=== PATIENT | male | born 1955 | race Caucasian/White ===

== ENCOUNTER 2020-05-17 14:20 | Emergency (ER) | payer OTHER ==
[2020-05-17] MEDS ORDERED: Sodium Chloride 0.9% 10 ML Syringe FLUSH PRN (14:26)
--- NOTE | 2020-05-17 15:03 | EDM.PDOC ---
ED HPI GENERAL MEDICAL PROBLEM - General Chief Complaint: General Stated Complaint: COVID+/HYPERTENSION Time Seen by Provider: 05/17/20 14:47 Source of Information: Reports: Patient History Limitations: Reports: No Limitations - History of Present Illness INITIAL COMMENTS - FREE TEXT/NARRATIVE: Patient presents with elevated blood pressure at home. When he saw it (170's/90s) he felt a little tightness in his chest as a result. He denies chest pain or dyspnea. He says he did get "winded" 2 days ago walking 1/2 mile of rough terrain to a [place]. He is taking his regular meds and says his Losartan was increased 2 days ago. - Related Data Allergies Allergy/AdvReac Type Severity Reaction Status Date / Time No Known Drug Allergies Allergy Other Verified 05/17/20 14:24 Home Meds: Home Meds Losartan [Cozaar] 100 mg PO DAILY 05/17/20 [History] atorvaSTATin [Lipitor] 40 mg PO BEDTIME 05/17/20 [History] Social & Family History - Tobacco Use Tobacco Use Status *Q: Former Tobacco User Used Tobacco, but Quit: Yes Month/Year Tobacco Last Used: 2016 ED ROS GENERAL - Review of Systems Review Of Systems: See Below Constitutional: Denies: Fever, Chills, Malaise, Weakness HEENT: Denies: Ear Pain, Throat Pain, Vision Change Respiratory: Denies: Shortness of Breath, Cough Cardiovascular: Reports: Blood Pressure Problem. Denies: Chest Pain, Lightheadedness, Syncope GI/Abdominal: Denies: Abdominal Pain, Diarrhea, Vomiting : Denies: Dysuria, Flank Pain Musculoskeletal: Denies: Neck Pain, Shoulder Pain, Arm Pain, Back Pain, Hand Pa in Skin: Denies: Cyanosis, Jaundice, Mottled, Pallor, Diaphoresis Neurological: Denies: Confusion, Dizziness, Seizure, Syncope, Trouble Speaking, Difficulty Walking Psychiatric: Denies: Agitation, Anxiety ED EXAM, GENERAL - Physical Exam Exam: See Below Exam Limited By: No Limitations General Appearance: Alert, WD/WN, No Apparent Distress Eye Exam: Bilateral Eye: EOMI, Normal Inspection, PERRL Ears: Normal External Exam, Hearing Grossly Normal Nose: Normal Inspection, No Blood Throat/Mouth: Normal Inspection, Normal Lips, Normal Voice, No Airway Compromise Head: Atraumatic, Normocephalic Neck: Normal Inspection, Full Range of Motion Respiratory/Chest: No Respiratory Distress, Lungs Clear, Normal Breath Sounds, No Accessory Muscle Use Cardiovascular: Regular Rate, Rhythm, No Murmur GI/Abdominal: Normal Bowel Sounds, Soft, Non-Tender, No Organomegaly, No Distention Back Exam: Normal Inspection, Full Range of Motion. No: CVA Tenderness (L), CVA Tenderness (R) Extremities: Normal Inspection, Normal Range of Motion Neurological: Alert, Oriented, Normal Cognition, No Motor/Sensory Deficits Psychiatric: Normal Affect, Normal Mood Skin Exam: Warm, Dry, Intact, Normal Color, No Rash Course - Vital Signs Last Recorded V/S: Last Vital Signs Temp 97 F 05/17/20 14:28 Pulse 64 05/17/20 16:30 Resp 19 05/17/20 16:30 BP 166/87 H 05/17/20 16:30 Pulse Ox 97 05/17/20 16:30 - Orders/Labs/Meds Orders: Active Orders 24 hr Category Date Time Status EKG Documentation Completion [RC] ASDIRECTED Care 05/17/20 14:26 Active Peripheral IV Care [RC] . DIRECTED Care 05/17/20 14:26 Active Sodium Chloride 0.9% [Saline Flush] Med 05/17/20 14:26 Active 10 ml FLUSH Q8HR PRN Isolation [COMM] Routine Oth 05/17/20 14:37 Ordered Peripheral IV Insertion Adult [OM.PC] Routine Oth 05/17/20 14:26 Ordered EKG 12 Lead [EK] Urgent Ther 05/17/20 14:26 Ordered Medication Orders Sodium Chloride (Saline Flush) 10 ml FLUSH Q8HR PRN PRN Reason: keep vein open Last Admin: 05/17/20 16:09 Dose: 10 ml Documented by: MARY Labs: Laboratory Tests 05/17/20 05/17/20 Range/Units 14:45 14:45 WBC 7.91 (5.00-10.00) 10^3/uL RBC 3.60 L (4.50-6.00) 10^6/uL Hgb 11.1 L (13.0-17.0) g/dL Hct 34.0 L (40.0-52.0) % MCV 94.4 H (82.0-92.0) fL MCH 30.8 (27.0-31.0) pg MCHC 32.6 (32.0-36.0) g/dL RDW 13.0 (11.5-14.5) % Plt Count 207 (150-400) 10^3/uL MPV 10.4 (7.4-10.4) fL Immature Gran % (Auto) 0.3 (0.0-5.0) % Neut % (Auto) 49.8 L (50.0-70.0) % Lymph % (Auto) 33.9 (20.0-40.0) % [place] % (Auto) 13.3 H (2.0-8.0) % Eos % (Auto) 2.3 (1.0-3.0) % Baso % (Auto) 0.4 (0.0-1.0) % Neut # (Auto) 3.95 (2.50-7.00) 10^3/uL Lymph # (Auto) 2.68 (1.00-4.00) 10^3/uL [place] # (Auto) 1.05 H (0.10-0.80) 10^3/uL Eos # (Auto) 0.18 (0.10-0.30) 10^3/uL Baso # (Auto) 0.03 (0.00-0.10) 10^3/uL Immature Gran # (Auto) 0.02 (0.00-0.50) 10^3/uL Sodium 138 (136-145) mmol/L Potassium 3.5 (3.3-5.3) mmol/L Chloride 105 (98-115) mmol/L Carbon Dioxide 25.0 (21.0-32.0) mmol/L Anion Gap 11.5 (5-15) mmol/L BUN 26 H (6-25) mg/dL Creatinine 1.45 H (0.51-1.17) mg/dL Est Cr Clr Drug Dosing 48.96 mL/min Estimated GFR (MDRD) 49 mL/min Glucose 90 (75 - 99) mg/dL Calcium 8.8 (8.7-10.3) mg/dL Total Bilirubin 0.4 (0.2-1.0) mg/dL AST 80 H (15-37) U/L ALT 123 H (12-78) U/L Alkaline Phosphatase 66 (46-116) IU/L Troponin I 0.09 H* (0.00-0.070) ng/mL Total Protein 8.1 (6.4-8.2) g/dL Albumin 3.01 (3.00-4.80) g/dL Meds: Medications Generic Name Dose Route Start Last Admin Trade Name Freq PRN Reason Stop Dose Admin Sodium Chloride 10 ml 05/17/20 14:26 05/17/20 16:09 Saline Flush FLUSH 10 ml Q8HR PRN Administration keep vein open Discontinued Medications Generic Name Dose Route Start Last Admin Trade Name Freq PRN Reason Stop Dose Admin Aspirin 324 mg 05/17/20 15:40 05/17/20 15:50 Aspirin PO 05/17/20 15:41 Not Given ONETIME ONE Aspirin Confirm 05/17/20 15:41 05/17/20 15:50 Aspirin Administered 05/17/20 15:42 Not Given Dose 324 mg .ROUTE .STK-MED ONE Enoxaparin Sodium 120 mg 05/17/20 16:01 05/17/20 16:09 Lovenox SUBCUT 05/17/20 16:02 120 mg ONETIME ONE Administration - Re-Assessments/Exams Free Text/Narrative Re-Assessment/Exam: 05/17/20 16:05 Troponin is 0.09, EKG shows no acute changes. CXR clear. Called [facility] first at patient's request but they would not be able to take him until a bed opened up, likely a few hours. Called [facility] and discussed case with Dr. Craig, hospitalist who accepted for transfer. He wants Lovenox 1mg/kg sq now. Patient took aspirin 324 at home just prior to coming in. He is stable. 05/17/20 16:51 Patient doing well. [place] called with room number and okay to transfer. Departure - Departure Time of Disposition: 16:04 Disposition: DC/Tfer to Acute Hospital 02 Condition: Good Clinical Impression: NSTEMI (non-ST elevated myocardial infarction), COVID-19, Elevated troponin - Discharge Information Referrals: Yoon Becker MD [Primary Care Provider] - Forms: ED Department Discharge Sepsis Event Note (ED) - Evaluation Sepsis Screening Result: No Definite Risk - Focused Exam Vital Signs: Vital Signs Temp Pulse Resp BP Pulse Ox 05/17/20 16:30 64 19 166/87 H 97 05/17/20 15:53 63 20 181/95 H 96 05/17/20 15:33 70 14 169/84 H 100 05/17/20 15:15 63 16 162/82 H 05/17/20 15:00 172/84 H 05/17/20 14:51 68 16 164/78 H 05/17/20 14:38 177/87 H 05/17/20 14:28 97 F 71 20 182/96 H 96 - My Orders Last 24 Hours: My Active Orders 05/17/20 14:26 EKG Documentation Completion [RC] ASDIRECTED Peripheral IV Care [RC] . DIRECTED Sodium Chloride 0.9% [Saline Flush] 10 ml FLUSH Q8HR PRN Peripheral IV Insertion Adult [OM.PC] Routine EKG 12 Lead [EK] Urgent 05/17/20 14:37 Isolation [COMM] Routine - Assessment/Plan Last 24 Hours: My Active Orders 05/17/20 14:26 EKG Documentation Completion [RC] ASDIRECTED Peripheral IV Care [RC] . DIRECTED Sodium Chloride 0.9% [Saline Flush] 10 ml FLUSH Q8HR PRN Peripheral IV Insertion Adult [OM.PC] Routine EKG 12 Lead [EK] Urgent 05/17/20 14:37 Isolation [COMM] Routine
--- NOTE | 2020-05-17 15:10 | CR ---
[id number] RAD/RAD Chest PA or AP 1V EXAM: FRONTAL CHEST INDICATION: CHEST TIGHTNESS. COMPARISON: May 03, 2013. DISCUSSION: The heart and lungs are normal in appearance. IMPRESSION: 1. Negative exam. Jitendra De La Garza MD 05/17/20 [id number] Thank you for allowing us to participate in the care of your patient.
[2020-05-17 15:22] LABS: ANION GAP 11.5 mmol/L (5-15)
[2020-05-17] MEDS ORDERED: Aspirin 81 MG Tab.Chew PO ONE (15:40)
[2020-05-17] MEDS ORDERED: Aspirin 81 MG Tab.Chew ONE (15:41)
[2020-05-17] MEDS ORDERED: Enoxaparin 60 MG/0.6 ML Syringe SUBCUT ONE (16:01)
== END 2020-05-17 17:15 ==
LOC: KA.ED 14:20
DX: U07.1 COVID-19 (principal); I21.4 Non-ST elevation (NSTEMI) myocardial infarction; R79.89 Other specified abnormal findings of blood chemistry; Z87.891 Personal history of nicotine dependence
CPT/HCPCS: 36415; 71045; 80053; 84484; 85025; 93005; 96372; 99284; 99285-25; J1650

== ENCOUNTER 2020-07-15 22:16 | Observation (INO) | payer OTHER ==
--- NOTE | 2020-07-15 22:30 | EDM.PDOC ---
ED HPI GENERAL MEDICAL PROBLEM - General Chief Complaint: Cardiovascular Problem Stated Complaint: HYPERTENSION Time Seen by Provider: 07/15/20 22:16 Source of Information: Reports: Patient History Limitations: Reports: No Limitations - History of Present Illness INITIAL COMMENTS - FREE TEXT/NARRATIVE: 64 YO WM S/P CABG 06/22/2020 WHO PRESENTS TO ER COMPLAINING OF ELEVATED BLOOD PRESSURE TODAY. PT CALLED THE [facility] AND WAS INSTRUCTED TO COME TO ER FOR EVALUATION. PT REPORTS BP TODAY HAS BEEN HIGHER THAN NORMAL- SYSTOLIC 160S DIASTOLIC- 90S PROMPTING CONCERN. PT DENIES CHEST PAIN, SHORTNESS OF BREATH, NAUSEA/VOMITING. PT REPORTS SOME MILD DIZZINESS AND BLURRED VISION WHICH HE STATES HAS BEEN GOING ON SINCE HIS SURGERY ON 06/22/2020. PT DENIES ANY WEAKNESS OR HEADACHES. PT DENIES FEVER/CHILLS, NO COUGH/CONGESTION, NO KNOWN COVID EXPOSURES. Onset: Today Location: Reports: Generalized Severity: Mild Improves with: Reports: None Worsens with: Reports: None Associated Symptoms: Denies: Chest Pain, Cough, Diaphoresis, Fever/Chills, Headaches, Nausea/Vomiting, Shortness of Breath, Syncope, Weakness - Related Data Allergies Allergy/AdvReac Type Severity Reaction Status Date / Time No Known Drug Allergies Allergy Other Verified 07/15/20 22:32 Home Meds: Home Meds atorvaSTATin [Lipitor] 40 mg PO BEDTIME 05/17/20 [History] Ascorbic Acid 500 mg PO DAILY 07/15/20 [History] Aspirin [Ecotrin EC] 325 mg PO DAILY 07/15/20 [History] Cholecalciferol (Vitamin D3) [Vitamin D3] 1,000 unit PO DAILY 07/15/20 [History] Metoprolol Succinate [Toprol XL] 50 mg PO DAILY 07/15/20 [History] Omeprazole 20 mg PO DAILY 07/15/20 [History] Sodium Bicarbonate 650 mg PO TID 07/15/20 [History] hydroCHLOROthiazide [Hydrochlorothiazide] 25 mg PO DAILY 07/15/20 [History] Past Medical History Cardiovascular History: Reports: High Cholesterol, Hypertension, Stents - Infectious Disease History Infectious Disease History: Reports: None - Past Surgical History Cardiovascular Surgical History: Reports: Coronary Artery Stent GI Surgical History: Reports: Cholecystectomy, Hernia Repair/Other ED ROS GENERAL - Review of Systems Review Of Systems: See Below Constitutional: Reports: No Symptoms HEENT: Reports: No Symptoms Respiratory: Reports: No Symptoms Cardiovascular: Reports: Blood Pressure Problem, Lightheadedness Endocrine: Reports: No Symptoms GI/Abdominal: Reports: No Symptoms : Reports: No Symptoms Musculoskeletal: Reports: No Symptoms Skin: Reports: No Symptoms Neurological: Reports: No Symptoms Psychiatric: Reports: No Symptoms Hematologic/Lymphatic: Reports: No Symptoms Immunologic: Reports: No Symptoms ED EXAM, GENERAL - Physical Exam Exam: See Below Exam Limited By: No Limitations General Appearance: Alert, WD/WN, No Apparent Distress Head: Atraumatic, Normocephalic Neck: Normal Inspection, Supple, Non-Tender, Full Range of Motion Respiratory/Chest: No Respiratory Distress, Lungs Clear, Normal Breath Sounds, No Accessory Muscle Use, Chest Non-Tender Cardiovascular: Normal Peripheral Pulses, Regular Rate, Rhythm, No Edema, No Gallop, No JVD, No Murmur, No Rub GI/Abdominal: Normal Bowel Sounds, Soft, Non-Tender, No Organomegaly, No Distention, No Abnormal Bruit, No Mass Back Exam: Normal Inspection, Full Range of Motion, NT Extremities: Normal Inspection, Normal Range of Motion, Non-Tender, Normal Capillary Refill, No Pedal Edema Neurological: Alert, Oriented, CN II-XII Intact, Normal Cognition, Normal Gait, Normal Reflexes, No Motor/Sensory Deficits Psychiatric: Normal Affect, Normal Mood Skin Exam: Warm, Dry, Intact, Normal Color, No Rash Lymphatic: No Adenopathy #1 Interpretation EKG Date: 07/15/20 Time: 22:36 Rhythm: NSR Rate (Beats/Min): 78 [place]: Normal P-Wave: Present QRS: Normal ST-T: Normal QT: Normal Course - Vital Signs Last Recorded V/S: Last Vital Signs Temp 96.0 F L 07/15/20 22:20 Pulse 77 07/15/20 22:20 Resp 20 07/15/20 22:20 BP 193/121 H 07/15/20 22:20 Pulse Ox 95 07/15/20 22:20 - Orders/Labs/Meds Orders: Active Orders 24 hr Category Date Time Status EKG Documentation Completion [RC] ASDIRECTED Care 07/15/20 22:26 Active Chest 2V [CR] Stat Exams 07/15/20 22:25 Ordered Head wo Cont [CT] Stat Exams 07/15/20 22:25 Ordered EKG 12 Lead [EK] Stat Ther 07/15/20 22:25 Ordered Labs: Laboratory Tests 07/15/20 07/15/20 07/15/20 Range/Units 22:20 22:20 22:20 WBC 6.92 (5.00-10.00) 10^3/uL RBC 3.35 L (4.50-6.00) 10^6/uL Hgb 10.0 L (13.0-17.0) g/dL Hct 31.7 L (40.0-52.0) % MCV 94.6 H (82.0-92.0) fL MCH 29.9 (27.0-31.0) pg MCHC 31.5 L (32.0-36.0) g/dL RDW 13.8 (11.5-14.5) % Plt Count 373 D (150-400) 10^3/uL MPV 9.4 (7.4-10.4) fL Immature Gran % (Auto) 1.0 (0.0-5.0) % Neut % (Auto) 52.1 (50.0-70.0) % Lymph % (Auto) 26.7 (20.0-40.0) % [place] % (Auto) 13.9 H (2.0-8.0) % Eos % (Auto) 5.9 H (1.0-3.0) % Baso % (Auto) 0.4 (0.0-1.0) % Neut # (Auto) 3.60 (2.50-7.00) 10^3/uL Lymph # (Auto) 1.85 (1.00-4.00) 10^3/uL [place] # (Auto) 0.96 H (0.10-0.80) 10^3/uL Eos # (Auto) 0.41 H (0.10-0.30) 10^3/uL Baso # (Auto) 0.03 (0.00-0.10) 10^3/uL Immature Gran # (Auto) 0.07 (0.00-0.50) 10^3/uL PT 10.2 (9.2-11.2) SEC INR 1.0 (0.9-1.1) APTT 27.9 (22.8-31.4) SEC Sodium 136 (136-145) mmol/L Potassium 3.1 L (3.5-5.1) mmol/L Chloride 101 (98-107) mmol/L Carbon Dioxide 27.1 (21.0-32.0) mmol/L Anion Gap 11.0 (5-15) mmol/L BUN 27 H (7-18) mg/dL Creatinine 1.61 H (0.51-1.17) mg/dL Est Cr Clr Drug Dosing 43.34 mL/min Estimated GFR (MDRD) 43 mL/min Glucose 100 (70-140) mg/dL Calcium 8.3 L (8.7-10.3) mg/dL Total Bilirubin 0.3 (0.2-1.0) mg/dL AST 81 H (15-37) U/L ALT 87 H (14-63) U/L Alkaline Phosphatase 135 H (46-116) U/L Creatine Kinase 53 (26-276) U/L CK-MB (CK-2) 0.60 (0.00-3.60) ng/mL Troponin I 0.094 H* (0.000-0.056) ng/mL B-Natriuretic Peptide 219 H (0-100) pg/mL Total Protein 7.7 (6.4-8.2) g/dL Albumin 2.27 L (3.40-5.00) g/dL SARS CoV-2 RNA Rapid RUT (NEGATIVE) 07/15/20 Range/Units 23:07 WBC (5.00-10.00) 10^3/uL RBC (4.50-6.00) 10^6/uL Hgb (13.0-17.0) g/dL Hct (40.0-52.0) % MCV (82.0-92.0) fL MCH (27.0-31.0) pg MCHC (32.0-36.0) g/dL RDW (11.5-14.5) % Plt Count (150-400) 10^3/uL MPV (7.4-10.4) fL Immature Gran % (Auto) (0.0-5.0) % Neut % (Auto) (50.0-70.0) % Lymph % (Auto) (20.0-40.0) % [place] % (Auto) (2.0-8.0) % Eos % (Auto) (1.0-3.0) % Baso % (Auto) (0.0-1.0) % Neut # (Auto) (2.50-7.00) 10^3/uL Lymph # (Auto) (1.00-4.00) 10^3/uL [place] # (Auto) (0.10-0.80) 10^3/uL Eos # (Auto) (0.10-0.30) 10^3/uL Baso # (Auto) (0.00-0.10) 10^3/uL Immature Gran # (Auto) (0.00-0.50) 10^3/uL PT (9.2-11.2) SEC INR (0.9-1.1) APTT (22.8-31.4) SEC Sodium (136-145) mmol/L Potassium (3.5-5.1) mmol/L Chloride (98-107) mmol/L Carbon Dioxide (21.0-32.0) mmol/L Anion Gap (5-15) mmol/L BUN (7-18) mg/dL Creatinine (0.51-1.17) mg/dL Est Cr Clr Drug Dosing mL/min Estimated GFR (MDRD) mL/min Glucose (70-140) mg/dL Calcium (8.7-10.3) mg/dL Total Bilirubin (0.2-1.0) mg/dL AST (15-37) U/L ALT (14-63) U/L Alkaline Phosphatase (46-116) U/L Creatine Kinase (26-276) U/L CK-MB (CK-2) (0.00-3.60) ng/mL Troponin I (0.000-0.056) ng/mL B-Natriuretic Peptide (0-100) pg/mL Total Protein (6.4-8.2) g/dL Albumin (3.40-5.00) g/dL SARS CoV-2 RNA Rapid RUT Negative (NEGATIVE) - Radiology Interpretation Free Text/Narrative:: CXR- MODERATE TO LARGE LEFT PLEURAL EFFUSION; LEFT BASILAR CONSOLIDATION CT HEAD- NAD Departure - Departure Time of Disposition: 23:55 Disposition: Refer to Observation Condition: Fair Clinical Impression: Uncontrolled hypertension, Elevated troponin I level, Pleural effusion, Hypokalemia, Renal insufficiency Referrals: [place]-Krish,Yoon A, MD [Primary Care Provider] - Forms: ED Department Discharge Sepsis Event Note (ED) - Focused Exam Vital Signs: Vital Signs Temp Pulse Resp BP Pulse Ox 07/15/20 22:20 96.0 F L 77 20 193/121 H 95 - My Orders Last 24 Hours: My Active Orders 07/15/20 22:25 Chest 2V [CR] Stat Head wo Cont [CT] Stat EKG 12 Lead [EK] Stat 07/15/20 22:26 EKG Documentation Completion [RC] ASDIRECTED - Assessment/Plan Admission H&P: Please use this note as an admission H&P Last 24 Hours: My Active Orders 07/15/20 22:25 Chest 2V [CR] Stat Head wo Cont [CT] Stat EKG 12 Lead [EK] Stat 07/15/20 22:26 EKG Documentation Completion [RC] ASDIRECTED Assessment:: 1. LARGE LEFT SIDED PLEURAL EFFUSION 2. HYPERTENSION 3. ELEVATED TROP I 4. MILD RENAL INSUFFICIENCY 5. HYPOKALEMIA Plan: 1. DISCUSSED CASE WITH DR BEJARANO- CV SURGERY WHO RECOMMENDS SCHEDULED OUTPATIENT THORACENTESIS AFTER OBSERVATION ADMISSION AT [facility]. 2. TROP I Q4 X 3 3. MONITOR BLOOD PRESSURE CLOSELY 4. SUPPORTIVE CARE 5. REPLACE POTASSIUM- KDUR 40MEQ NOW
[2020-07-15 23:01] LABS: PTT,PARTIAL THROMBOPLSTIN TIME 27.9 SEC (22.8-31.4)
[2020-07-15] MEDS ORDERED: Sodium Chloride 0.9% 10 ML Syringe FLUSH PRN (23:57)
[2020-07-16] MEDS: Potassium Chloride 20 MEQ Tab.ER PO ONE (00:58)
[2020-07-16] MEDS: Nitroglycerin 2% Oint 1 GM UD Packet TOP PRN (00:58)
[2020-07-16] MEDS: Acetaminophen 325 MG Tab PO PRN (04:04)
[2020-07-16 07:41] LABS: ANION GAP 8.6 mmol/L (5-15)
--- NOTE | 2020-07-16 07:46 | CT ---
[id number] CT/CT Head WO IV EXAM: CT Head WO IV CLINICAL DATA: HYPERTENSION COMPARISON: NO PREVIOUS SIMILAR EXAM IS AVAILABLE FOR COMPARISON. FINDINGS: There is no mass or mass effect. There is no hemorrhage or hydrocephalus. There are no extra-axial fluid collections. There are no sites of abnormal attenuation. IMPRESSION: NO PLAIN CT EVIDENCE OF ACUTE INTRACRANIAL PROCESS. Devonte Valentine MD 07/16/20 0744 Thank you for allowing us to participate in the care of your patient.
--- NOTE | 2020-07-16 07:46 | CR ---
[id number] RAD/RAD Chest PA And Lateral EXAM: RAD Chest PA And Lateral CLINICAL DATA: HYPERTENSION COMPARISON: CORRELATION IS MADE WITH MAY 17, 2020 FINDINGS: The patient has undergone heart surgery There is a large effusion with volume loss at the left lung base The right lung is clear The cardiac silhouette is enlarged IMPRESSION: INTERVAL HEART SURGERY SINCE LAST EXAM RESIDUAL PLEURAL FLUID AND ATELECTASIS LEFT BASE POSSIBLE PERICARDIAL EFFUSION Devonte Valentine MD 07/16/20 0745 Thank you for allowing us to participate in the care of your patient.
[2020-07-16] MEDS: Ascorbic Acid 500 MG Tab PO SCH (08:50)
[2020-07-16] MEDS: Cholecalciferol (Vitamin D3) 25 MCG Tab PO SCH (08:50)
[2020-07-16] MEDS: Omeprazole 20 MG Cap.CR PO SCH (08:51)
[2020-07-16] MEDS: Aspirin 325 MG Tab.EC PO SCH (08:51)
[2020-07-16] MEDS: Metoprolol Succinate 25 MG Tab.ER PO SCH (08:51)
[2020-07-16] MEDS: Hydrochlorothiazide 25 MG Tab PO SCH (08:51)
--- NOTE | 2020-07-16 09:30 | PCM.DCSUM1 ---
Discharge Summary - Hospital Course Free Text/Narrative:: Admission Date: 07/15/2019 Discharge Date: 07/16/2019 Admission Diagnoses: Hypertension Left sided pleural effusion Discharge Diagnoses: Hypertension, improving, no change in home meds. Continue metoprolol 50 mg PO daily and HCTZ 25 mg PO daily Left sided pleural effusion, he will drive directly to [place] to Dr. Mariano's office at the [facility] and have this drained today Hypokalemia, resolved after KCl 40 mEq PO x 1 Hypomagnesemia, can start magnesium oxide 400 mg PO daily OTC Secondary Diagnoses: CKD, stable CAD, continue atorvastatin 40 mg PO daily, ASA 81 mg PO daily Acid Reflux, continue omeprazole 40 mg PO daily Anemia of chronic disease Oliver is being discharged from an observation stay for hypertension. His BP had been running in the 130's systolic but on 07/15 (admission day) he was in the 160's over 100's. He felt fine, no LEON, CP, SOB. 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 He contacted the [place] nurse line and they recommended he come in to the ER for evaluation. In the ER his EKG showed NSR with a troponin of 0.094 (0.000 - 0.056). He had a CXR which showed a moderate to large left sided pleural effusion. BP was 193/121. Without any intervention his BP came done to 129/60 this AM. He feels fine. I spoke to Dr. Mariano's nurse and she recommended that Oliver come directly after discharge to their office for drain age today. He is in agreement with this plan. No medication changes were made. Recommend he start magnesium oxide as an OTC supplement due to magnesium of 1.6. Follow-up in the clinic in 1 week for BP check and labs. Diagnosis: Stroke: No Modified [place] Scale: No Symptoms at All Modified [place] Scale Score: 0 - Discharge Data Discharge Date: 07/16/20 Discharge Disposition: Home, Self-Care 01 Condition: Good - Referral to Home Health Primary Care Physician: Yoon Becker MD - Patient Instructions Diet: Heart Healthy Diet Activity: As Tolerated - Discharge Plan *PRESCRIPTION DRUG MONITORING PROGRAM REVIEWED*: Not Applicable *COPY OF PRESCRIPTION DRUG MONITORING REPORT IN PATIENT BILL: Not Applicable Home Medications: Home Meds atorvaSTATin [Lipitor] 40 mg PO BEDTIME 05/17/20 [History] Ascorbic Acid 500 mg PO DAILY 07/15/20 [History] Aspirin [Ecotrin EC] 325 mg PO DAILY 07/15/20 [History] Cholecalciferol (Vitamin D3) [Vitamin D3] 1,000 unit PO DAILY 07/15/20 [History] Metoprolol Succinate [Toprol XL] 50 mg PO DAILY 07/15/20 [History] Omeprazole 20 mg PO DAILY 07/15/20 [History] Sodium Bicarbonate 650 mg PO TID 07/15/20 [History] hydroCHLOROthiazide [Hydrochlorothiazide] 25 mg PO DAILY 07/15/20 [History] Forms: ED Department Discharge Referrals: Yoon Becker MD [Primary Care Provider] - - Discharge Summary/Plan Comment DC Time >30 min.: No - General Info Date of Service: 07/16/20 - Patient Data Vitals - Most Recent: Last Vital Signs Temp 99.5 F 07/16/20 06:44 Pulse 70 07/16/20 08:51 Resp 16 07/16/20 06:44 BP 173/88 H 07/16/20 08:51 Pulse Ox 93 L 07/16/20 06:44 Weight - Most Recent: 233 lb 6.4 oz I&O - Last 24 hours: Intake & Output 07/15/20 07/16/20 07/16/20 22:59 06:59 14:59 Intake Total 150 Balance 150 Lab Results - Last 24 hrs: Laboratory Results - last 24 hr 07/15/20 07/15/20 07/15/20 Range/Units 22:20 22:20 22:20 WBC 6.92 (5.00-10.00) 10^3/uL RBC 3.35 L (4.50-6.00) 10^6/uL Hgb 10.0 L (13.0-17.0) g/dL Hct 31.7 L (40.0-52.0) % MCV 94.6 H (82.0-92.0) fL MCH 29.9 (27.0-31.0) pg MCHC 31.5 L (32.0-36.0) g/dL RDW 13.8 (11.5-14.5) % Plt Count 373 D (150-400) 10^3/uL MPV 9.4 (7.4-10.4) fL Immature Gran % (Auto) 1.0 (0.0-5.0) % Neut % (Auto) 52.1 (50.0-70.0) % Lymph % (Auto) 26.7 (20.0-40.0) % Mclean % (Auto) 13.9 H (2.0-8.0) % Eos % (Auto) 5.9 H (1.0-3.0) % Baso % (Auto) 0.4 (0.0-1.0) % Neut # (Auto) 3.60 (2.50-7.00) 10^3/uL Lymph # (Auto) 1.85 (1.00-4.00) 10^3/uL Mclean # (Auto) 0.96 H (0.10-0.80) 10^3/uL Eos # (Auto) 0.41 H (0.10-0.30) 10^3/uL Baso # (Auto) 0.03 (0.00-0.10) 10^3/uL Immature Gran # (Auto) 0.07 (0.00-0.50) 10^3/uL PT 10.2 (9.2-11.2) SEC INR 1.0 (0.9-1.1) APTT 27.9 (22.8-31.4) SEC Sodium 136 (136-145) mmol/L Potassium 3.1 L (3.5-5.1) mmol/L Chloride 101 (98-107) mmol/L Carbon Dioxide 27.1 (21.0-32.0) mmol/L Anion Gap 11.0 (5-15) mmol/L BUN 27 H (7-18) mg/dL Creatinine 1.61 H (0.51-1.17) mg/dL Est Cr Clr Drug Dosing 43.34 mL/min Estimated GFR (MDRD) 43 mL/min Glucose 100 (70-140) mg/dL Calcium 8.3 L (8.7-10.3) mg/dL Magnesium (1.8-2.4) mg/dL Total Bilirubin 0.3 (0.2-1.0) mg/dL AST 81 H (15-37) U/L ALT 87 H (14-63) U/L Alkaline Phosphatase 135 H (46-116) U/L Creatine Kinase 53 (26-276) U/L CK-MB (CK-2) 0.60 (0.00-3.60) ng/mL Troponin I 0.094 H* (0.000-0.056) ng/mL B-Natriuretic Peptide 219 H (0-100) pg/mL Total Protein 7.7 (6.4-8.2) g/dL Albumin 2.27 L (3.40-5.00) g/dL SARS CoV-2 RNA Rapid RUT (NEGATIVE) 07/15/20 07/16/20 07/16/20 Range/Units 23:07 03:30 07:12 WBC 6.52 (5.00-10.00) 10^3/uL RBC 3.15 L (4.50-6.00) 10^6/uL Hgb 9.4 L (13.0-17.0) g/dL Hct 29.5 L (40.0-52.0) % MCV 93.7 H (82.0-92.0) fL MCH 29.8 (27.0-31.0) pg MCHC 31.9 L (32.0-36.0) g/dL RDW 13.8 (11.5-14.5) % Plt Count 355 (150-400) 10^3/uL MPV 9.7 (7.4-10.4) fL Immature Gran % (Auto) 1.1 (0.0-5.0) % Neut % (Auto) 56.8 (50.0-70.0) % Lymph % (Auto) 23.2 (20.0-40.0) % Mclean % (Auto) 13.8 H (2.0-8.0) % Eos % (Auto) 4.6 H (1.0-3.0) % Baso % (Auto) 0.5 (0.0-1.0) % Neut # (Auto) 3.71 (2.50-7.00) 10^3/uL Lymph # (Auto) 1.51 (1.00-4.00) 10^3/uL Mclean # (Auto) 0.90 H (0.10-0.80) 10^3/uL Eos # (Auto) 0.30 (0.10-0.30) 10^3/uL Baso # (Auto) 0.03 (0.00-0.10) 10^3/uL Immature Gran # (Auto) 0.07 (0.00-0.50) 10^3/uL PT (9.2-11.2) SEC INR (0.9-1.1) APTT (22.8-31.4) SEC Sodium (136-145) mmol/L Potassium (3.5-5.1) mmol/L Chloride (98-107) mmol/L Carbon Dioxide (21.0-32.0) mmol/L Anion Gap (5-15) mmol/L BUN (7-18) mg/dL Creatinine (0.51-1.17) mg/dL Est Cr Clr Drug Dosing mL/min Estimated GFR (MDRD) mL/min Glucose (70-140) mg/dL Calcium (8.7-10.3) mg/dL Magnesium (1.8-2.4) mg/dL Total Bilirubin (0.2-1.0) mg/dL AST (15-37) U/L ALT (14-63) U/L Alkaline Phosphatase (46-116) U/L Creatine Kinase (26-276) U/L CK-MB (CK-2) (0.00-3.60) ng/mL Troponin I 0.095 H* (0.000-0.056) ng/mL B-Natriuretic Peptide (0-100) pg/mL Total Protein (6.4-8.2) g/dL Albumin (3.40-5.00) g/dL SARS CoV-2 RNA Rapid RUT Negative (NEGATIVE) 07/16/20 Range/Units 07:12 WBC (5.00-10.00) 10^3/uL RBC (4.50-6.00) 10^6/uL Hgb (13.0-17.0) g/dL Hct (40.0-52.0) % MCV (82.0-92.0) fL MCH (27.0-31.0) pg MCHC (32.0-36.0) g/dL RDW (11.5-14.5) % Plt Count (150-400) 10^3/uL MPV (7.4-10.4) fL Immature Gran % (Auto) (0.0-5.0) % Neut % (Auto) (50.0-70.0) % Lymph % (Auto) (20.0-40.0) % Mclean % (Auto) (2.0-8.0) % Eos % (Auto) (1.0-3.0) % Baso % (Auto) (0.0-1.0) % Neut # (Auto) (2.50-7.00) 10^3/uL Lymph # (Auto) (1.00-4.00) 10^3/uL Mclean # (Auto) (0.10-0.80) 10^3/uL Eos # (Auto) (0.10-0.30) 10^3/uL Baso # (Auto) (0.00-0.10) 10^3/uL Immature Gran # (Auto) (0.00-0.50) 10^3/uL PT (9.2-11.2) SEC INR (0.9-1.1) APTT (22.8-31.4) SEC Sodium 136 (136-145) mmol/L Potassium 3.6 (3.5-5.1) mmol/L Chloride 103 (98-107) mmol/L Carbon Dioxide 28.0 (21.0-32.0) mmol/L Anion Gap 8.6 (5-15) mmol/L BUN 27 H (7-18) mg/dL Creatinine 1.64 H (0.51-1.17) mg/dL Est Cr Clr Drug Dosing 42.54 mL/min Estimated GFR (MDRD) 43 mL/min Glucose 101 (70-140) mg/dL Calcium 8.1 L (8.7-10.3) mg/dL Magnesium 1.6 L (1.8-2.4) mg/dL Total Bilirubin (0.2-1.0) mg/dL AST (15-37) U/L ALT (14-63) U/L Alkaline Phosphatase (46-116) U/L Creatine Kinase (26-276) U/L CK-MB (CK-2) (0.00-3.60) ng/mL Troponin I (0.000-0.056) ng/mL B-Natriuretic Peptide (0-100) pg/mL Total Protein (6.4-8.2) g/dL Albumin (3.40-5.00) g/dL SARS CoV-2 RNA Rapid RUT (NEGATIVE) Med Orders - Current: Current Medications Acetaminophen (Tylenol) 650 mg PO Q4H PRN PRN Reason: Pain Last Admin: 07/16/20 04:04 Dose: 650 mg Documented by: Ascorbic Acid (Vitamin C) 500 mg PO DAILY [facility] Last Admin: 07/16/20 08:50 Dose: 500 mg Documented by: Aspirin (Ecotrin) 325 mg PO DAILY [facility] Last Admin: 07/16/20 08:51 Dose: 325 mg Documented by: Atorvastatin Calcium (Lipitor) 40 mg PO BEDTIME [facility] Cholecalciferol (Vitamin D3) 25 mcg PO DAILY [facility] Last Admin: 07/16/20 08:50 Dose: 25 mcg Documented by: Hydrochlorothiazide (Hydrochlorothiazide) 25 mg PO DAILY [facility] Last Admin: 07/16/20 08:51 Dose: 25 mg Documented by: Metoprolol Succinate (Toprol Xl) 50 mg PO DAILY [facility] Last Admin: 07/16/20 08:51 Dose: 50 mg Documented by: Nitroglycerin (Nitro-Bid 2%) 1 gm TOP Q6H PRN PRN Reason: Chest Pain Last Admin: 07/16/20 00:58 Dose: 1 gm Documented by: Omeprazole (Omeprazole) 20 mg PO DAILY [facility] Last Admin: 07/16/20 08:51 Dose: 20 mg Documented by: Sodium Bicarbonate (Sodium Bicarbonate) 650 mg PO TID [facility] Sodium Chloride (Saline Flush) 10 ml FLUSH Q8HR PRN PRN Reason: keep vein open Discontinued Medications Potassium Chloride (Klor-Con M20) 40 meq PO ONETIME ONE Stop: 07/16/20 00:04 Last Admin: 07/16/20 00:58 Dose: 40 meq Documented by: - Exam General: Reports: Alert, Oriented, Cooperative, No Acute Distress Lungs: Reports: Decreased Breath Sounds (Left lung base) Cardiovascular: Reports: Regular Rate, Regular Rhythm, No Murmurs Extremities: No Pedal Edema
[2020-07-16] MEDS ORDERED: atorvaSTATin 40 MG Tab PO SCH (21:00)
== END 2020-07-16 12:13 | disposition home or self-care (01) ==
LOC: KA.ED 22:16 → KA.MS 23:56 → UNDOADMOB 07-16 00:05
PROVIDERS: ADMIT Physician Assistant Medical; ATTEND Internal Medicine
DX: I12.9 Hypertensive chronic kidney disease with stage 1 through stage 4 chronic kidney disease, or unspecified chronic kidney disease (principal); N18.9 Chronic kidney disease, unspecified; D63.1 Anemia in chronic kidney disease; K21.9 Gastro-esophageal reflux disease without esophagitis; E83.42 Hypomagnesemia; E78.00 Pure hypercholesterolemia, unspecified; E87.6 Hypokalemia; J90 Pleural effusion, not elsewhere classified; R77.8 Other specified abnormalities of plasma proteins; Z20.822 Contact with and (suspected) exposure to COVID-19; Z79.899 Other long term (current) drug therapy; Z79.82 Long term (current) use of aspirin; Z90.49 Acquired absence of other specified parts of digestive tract; Z95.5 Presence of coronary angioplasty implant and graft
CPT/HCPCS: 36415; 70450; 71046; 80048; 80053; 82550; 82553; 83735; 83880; 84484; 85025; 85610; 85730; 93005; 99220; 99285-25; A9270-GY; G0378; U0002